=== PATIENT | male | born 1960 | race Caucasian/White ===

== ENCOUNTER 2019-03-28 13:30 | Emergency (ER) | payer MEDICAID, SELFPAY ==
[~2019-03-28] VITALS: Ht 188 cm; Wt 77.9 kg
[2019-03-28] MEDS ORDERED: NS 1,000 ML IV ONE (14:15)
[2019-03-28 15:00] LABS: BASO # 0.1 10^3/uL (0.0-0.2); BASO % 0.6 % (0.0-1.0); EOS # 0.2 10^3/uL (0.0-0.5); EOS % 1.5 % (0.0-3.0); HEMATOCRIT 38.6 % (42.0-52.0); HEMOGLOBIN 12.7 g/dl (13.5-17.5); LYMPH # 1.6 10^3/uL (1.5-5.0); LYMPH % 11.6 % (24.0-44.0); MEAN CORPUSCULAR HEMOGLOBIN 27.5 pg (27.0-33.0); MEAN CORPUSCULAR HGB CONC 32.9 g/dl (32.0-36.5); MEAN CORPUSCULAR VOLUME 83.7 fl (80.0-96.0); MONO # 1.2 10^3/uL (0.0-0.8); MONO % 8.9 % (0.0-5.0); NEUTROPHILS # 10.7 10^3/uL (1.5-8.5); NEUTROPHILS % 76.8 % (36.0-66.0); PLATELET COUNT, AUTOMATED 231 10^3/uL (150-450); RED BLOOD COUNT 4.61 10^6/uL (4.30-6.10); WHITE BLOOD COUNT 13.9 10^3/uL (4.0-10.0)
[2019-03-28] MEDS ORDERED: ISOVUE-370 76% 100ML VIAL (Q9967) As Ordered ONE (15:01)
[2019-03-28 15:29] LABS: ALT/SGPT 24 U/L (12-78); BILIRUBIN,DIRECT < 0.1 MG/DL (0.0-0.2); BILIRUBIN,TOTAL 0.7 MG/DL (0.2-1.0); LIPASE 128 U/L (73-393); TOTAL PROTEIN 6.6 GM/DL (6.4-8.2)
--- NOTE | 2019-03-28 16:13 | REP ---
CT ABDOMEN AND PELVIS WITH IV CONTRAST: TECHNIQUE: Axial contrast enhanced images from the lung bases to the pubic symphysis using 100 mL Isovue 370 intravenous contrast material with multiplanar reformations. In the visualized lung bases there is a spiculated necrotic mass in the posterior aspect of the right lower lobe 3 cm in diameter. The left lower lobe demonstrates a subcentimeter nodule posteriorly at about the same level. There are multiple metastatic lesions throughout the liver. The largest is inferiorly in the right lobe and measures approximately 6.3 cm. The spleen is unremarkable. No adrenal mass is seen. There is also no renal mass. However there is a large mass which involves the body of the pancreas encasing the celiac, hepatic and splenic arteries, and also encasing the superior mesenteric artery. It measures approximately 8 cm at its epicenter with a limb extending anteriorly to the posterior surface of the antrum of the stomach. The mass also extends to the posterior aspect of the fundus of the stomach. Multiple omental and mesenteric nodules are seen in the upper abdomen was well as in the anterior aspect of the lower abdomen. These all are in the range of 1 to 2 cm in diameter. Left paraaortic adenopathy is seen measuring 3 x 1.9 cm. A few other subcentimeter lymph nodes are seen in the periaortic region. There is mild free fluid in the pelvis. Degenerative changes are noted of the spine with several Schmorl's nodes of lumbar vertebral bodies. There is a cluster of likely metastatic adenopathy in the left lower quadrant posterior to the sigmoid colon. IMPRESSION: Large pancreatic mass with extension anteriorly to the posterior margins of the stomach. Multiple satellite nodules seen in the adjacent mesentery and omentum extending inferiorly and anteriorly into the lower abdomen. There is periaortic adenopathy as well. There are multiple innumerable liver metastases. There is encasement of celiac and superior mesenteric arteries in addition to the hepatic and splenic arteries. 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 Mild free fluid in the pelvis. There is a cluster of likely metastatic adenopathy in the left lower quadrant posterior to the sigmoid colon. Electronically Signed by Jesse Breaux MD 03/28/2019 08:05 P
[2019-03-28 16:34] VITALS: BP 165/98
== END 2019-03-28 16:41 | disposition home or self-care (01) ==
LOC: M ED 13:30
DX: C25.9 Malignant neoplasm of pancreas, unspecified (principal); C78.7 Secondary malignant neoplasm of liver and intrahepatic bile duct; C78.00 Secondary malignant neoplasm of unspecified lung; F17.218 Nicotine dependence, cigarettes, with other nicotine-induced disorders
CPT/HCPCS: 36415; 74177; 80047; 80076; 81001; 83605; 83690; 85025; 99284; Q9967

== ENCOUNTER → 2019-04-10 | Outpatient (REF) | payer SELFPAY ==
[2019-04-10 13:37] LABS: BASO # 0.1 10^3/uL (0.0-0.2); BASO % 0.9 % (0.0-1.0); EOS # 0.4 10^3/uL (0.0-0.5); EOS % 2.4 % (0.0-3.0); HEMATOCRIT 38.8 % (42.0-52.0); HEMOGLOBIN 12.4 g/dl (13.5-17.5); LYMPH # 1.5 10^3/uL (1.5-5.0); LYMPH % 10.2 % (24.0-44.0); MEAN CORPUSCULAR HEMOGLOBIN 26.7 pg (27.0-33.0); MEAN CORPUSCULAR VOLUME 83.6 fl (80.0-96.0); MONO # 1.6 10^3/uL (0.0-0.8); MONO % 10.5 % (0.0-5.0); NEUTROPHILS # 11.2 10^3/uL (1.5-8.5); NEUTROPHILS % 75.3 % (36.0-66.0); PLATELET COUNT, AUTOMATED 221 10^3/uL (150-450); RED BLOOD COUNT 4.64 10^6/uL (4.30-6.10); WHITE BLOOD COUNT 14.9 10^3/uL (4.0-10.0)
[2019-04-10 13:47] LABS: ALBUMIN 2.9 GM/DL (3.2-5.2); ALT/SGPT 14 U/L (12-78); BILIRUBIN,TOTAL 0.6 MG/DL (0.2-1.0); BLOOD UREA NITROGEN 14 MG/DL (7-18); CALCIUM LEVEL 9.1 MG/DL (8.5-10.1); CARBON DIOXIDE LEVEL 26 MEQ/L (21-32); CHLORIDE LEVEL 100 MEQ/L (98-107); CREATININE FOR GFR 0.63 MG/DL (0.70-1.30); GLOMERULAR FILTRATION RATE > 60.0 (>56); GLUCOSE, FASTING 114 MG/DL (70-100); POTASSIUM SERUM 4.6 MEQ/L (3.5-5.1); SODIUM LEVEL 134 MEQ/L (136-145); TOTAL PROTEIN 6.6 GM/DL (6.4-8.2)
[2019-04-10 13:48] LABS: INR 1.28; PROTHROMBIN TIME 15.7 SECONDS (11.8-14.0)
[2019-04-10 13:49] LABS: PARTIAL THROMBOPLASTIN TIME 38.6 SECONDS (25.0-38.4)
== END ==
LOC: M LAB REF 13:04
PROVIDERS: ATTEND Internal Medicine Pulmonary Disease
DX: Z01.812 Encounter for preprocedural laboratory examination (principal); R59.0 Localized enlarged lymph nodes; R93.5 Abnormal findings on diagnostic imaging of other abdominal regions, including retroperitoneum

== ENCOUNTER → 2019-05-02 | Outpatient (CLI) | payer MEDICAID ==
[~2019-05-02] MED LIST: HYDR-3713 PO
[2019-05-02 15:18] LABS: INR 1.28; PROTHROMBIN TIME 15.7 SECONDS (11.8-14.0)
[2019-05-02 15:19] LABS: PARTIAL THROMBOPLASTIN TIME 41.7 SECONDS (25.0-38.4)
== END ==
LOC: M LAB 13:13
PROVIDERS: ATTEND Internal Medicine
DX: Z00.01 Encounter for general adult medical examination with abnormal findings (principal)

== ENCOUNTER → 2019-05-08 | Outpatient (CLI) | payer MEDICAID ==
[~2019-05-08] MED LIST changes: +LIDOCAINE 1% MDV 20ML VIAL As Ordered ONE
[2019-05-08 16:05] VITALS: BP 117/65
--- NOTE | 2019-05-09 22:31 | REP ---
Ultrasound-guided liver biopsy This procedure was performed by Pao DOUGLASS, under the direct supervision of Dr. Breaux. The risks and benefits of the procedure were explained to the patient and informed consent was obtained both verbally and written. Directly prior to the start of the procedure, a formal timeout was done in the procedure room. The left lobe of the liver was localized using ultrasound guidance. The skin was prepped and draped in a sterile fashion. 7 ml of 1% lidocaine 10 mg/ml was used as a local anesthetic. Using ultrasound guidance a small skin niya was made and a 19/20 gauge coaxial needle biopsy system was inserted and advanced into the liver. 6 core biopsy samples were obtained and sent to the lab. The patient tolerated the procedure well and there were no immediate complications. After the appropriate monitored convalescence the patient was discharged home from the department. Reviewed by EVONNE Farrell 05/08/2019 05:39 P Electronically Signed by Jesse Breaux MD 05/09/2019 10:22 P
== END ==
LOC: M IRPRO 12:38
PROVIDERS: ATTEND Internal Medicine
DX: C78.7 Secondary malignant neoplasm of liver and intrahepatic bile duct (principal); C25.7 Malignant neoplasm of other parts of pancreas; F17.210 Nicotine dependence, cigarettes, uncomplicated; K21.9 Gastro-esophageal reflux disease without esophagitis

== ENCOUNTER 2019-05-24 18:09 | Inpatient (IN) | payer MEDICAID, OTHER ==
[~2019-05-24] VITALS: Ht 177.8 cm; Wt 73.2 kg
[~2019-05-24 18:09] MED LIST changes: -LIDOCAINE 1% MDV 20ML VIAL As Ordered ONE
[2019-05-24] MEDS ORDERED: OMEP-218 (18:16)
[2019-05-24 19:37] LABS: BASO # 0.1 10^3/uL (0.0-0.2); BASO % 0.4 % (0.0-1.0); EOS # 0.3 10^3/uL (0.0-0.5); EOS % 2.1 % (0.0-3.0); LYMPH # 1.3 10^3/uL (1.5-5.0); LYMPH % 8.9 % (24.0-44.0); MEAN CORPUSCULAR HEMOGLOBIN 25.3 pg (27.0-33.0); MEAN CORPUSCULAR HGB CONC 30.9 g/dl (32.0-36.5); MEAN CORPUSCULAR VOLUME 81.8 fl (80.0-96.0); MONO # 1.6 10^3/uL (0.0-0.8); MONO % 11.3 % (0.0-5.0); NEUTROPHILS # 10.8 10^3/uL (1.5-8.5); NEUTROPHILS % 76.6 % (36.0-66.0); PLATELET COUNT, AUTOMATED 245 10^3/uL (150-450); RED BLOOD COUNT 2.53 10^6/uL (4.30-6.10); WHITE BLOOD COUNT 14.1 10^3/uL (4.0-10.0)
[2019-05-24 19:45] LABS: HEMATOCRIT 20.7 % (42.0-52.0); HEMOGLOBIN 6.4 g/dl (13.5-17.5)
[2019-05-24 19:53] LABS: INR 1.4; PROTHROMBIN TIME 16.9 SECONDS (11.8-14.0)
[2019-05-24 19:54] LABS: PARTIAL THROMBOPLASTIN TIME 47.6 SECONDS (25.0-38.4)
[2019-05-24 20:00] LABS: ALBUMIN 2.4 GM/DL (3.2-5.2); ALT/SGPT 16 U/L (12-78); BILIRUBIN,DIRECT 0.4 MG/DL (0.0-0.2); BILIRUBIN,TOTAL 0.6 MG/DL (0.2-1.0); BLOOD UREA NITROGEN 17 MG/DL (7-18); CALCIUM LEVEL 8.5 MG/DL (8.5-10.1); CARBON DIOXIDE LEVEL 26 MEQ/L (21-32); CHLORIDE LEVEL 102 MEQ/L (98-107); CREATININE FOR GFR 0.65 MG/DL (0.70-1.30); GLOMERULAR FILTRATION RATE > 60.0 (>56); GLUCOSE, FASTING 109 MG/DL (70-100); LIPASE 95 U/L (73-393); POTASSIUM SERUM 4.5 MEQ/L (3.5-5.1); SODIUM LEVEL 137 MEQ/L (136-145); TOTAL PROTEIN 5.8 GM/DL (6.4-8.2)
[2019-05-24] MEDS ORDERED: ISOVUE-370 76% 100ML VIAL (Q9967) As Ordered ONE (20:11)
--- NOTE | 2019-05-24 20:58 | REPVR ---
PROCEDURE INFORMATION: Exam: CT Abdomen And Pelvis With Contrast Exam date and time: 05/24/2019 8:17 PM Age: 58 years old Clinical indication: Abdominal pain; Patient HX: Possible new pancreatic CA? ; Additional info: Abdominal bloating; R/O ascites TECHNIQUE: Imaging protocol: Computed tomography of the abdomen and pelvis with intravenous contrast. Radiation optimization: All CT scans at this facility use at least one of these dose optimization techniques: automated exposure control; mA and/or kV adjustment per patient size (includes targeted exams where dose is matched to clinical indication); or iterative reconstruction. Contrast material: ISOVUE 370; Contrast volume: 100 ml; Contrast route: IV; COMPARISON: CT ABD/PEL W/IV CONTRAST ONLY 03/28/2019 3:05 PM FINDINGS: Lungs: Largest mass in the right lobe measures approximate 7.1 cm. Pleural space: 1.6 cm pleural-based right middle lobe mass. Liver: Multiple masses throughout the liver have increased in size and number. Gallbladder and bile ducts: Normal. No calcified stones. No ductal dilation. Pancreas: Ill-defined heterogeneous lobulated pancreatic mass measures approximately 8.3 cm in its largest point, increased in size from the prior exam. The pancreatic mass is not separable from the duodenum. Spleen: Heterogeneous appearance of the spleen with several new low density areas measuring up to 11 mm. Adrenals: Normal. No mass. Kidneys and ureters: Normal. No hydronephrosis. Stomach and bowel: No obstruction. No mucosal thickening. Appendix: No evidence of appendicitis. Intraperitoneal space: Large volume of ascites. Multiple peritoneal masses measuring up to 2.0 cm, predominately in the anterior omentum. Vasculature: The pancreatic mass encases the celiac artery axis and superior mesenteric arteries which are narrowed but remain patent. 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 Aortoiliac atherosclerotic disease. Lymph nodes: Periportal and retroperitoneal lymphadenopathy, similar to the prior exam. Bladder: Unremarkable as visualized. Reproductive: Unremarkable as visualized. Bones/joints: There are degenerative changes in the spine and pelvis. Soft tissues: Unremarkable. IMPRESSION: 1. Interval increase in size of large pancreatic mass. Worsening hepatic and peritoneal metastatic disease with large volume of ascites. 2. Small low-density foci in the spleen may be small peripheral infarcts or small metastases. 3. Stable right lower lobe nodule. Electronically signed by: Isidro Erickson On 05/24/2019 20:58:10 PM
[2019-05-24] MEDS ORDERED: TUMS1000 PO (21:54)
[2019-05-24] MEDS ORDERED: OMEP-218 PO (21:54)
[2019-05-24] MEDS ORDERED: NORC1TAB7 PO (21:54)
[2019-05-24] MEDS ORDERED: ACET25TA12 PO (21:54)
[2019-05-24] MEDS ORDERED: cefTRIAXone SOD 2 GM in D5W MINI-BAG PLUS 50 ML IV ONE (22:15)
--- NOTE | 2019-05-24 22:46 | HPEPDOC ---
General Date of Admission 05/24/19 Date of Service: May 24, 2019 Chief Complaint The patient is a 58-year-old male admitted with a reason for visit of Abnormal Labs. Source: Patient, Family Exam Limitations: No limitations Timing/Duration: Day(s) Severity: Moderate Associated Symptoms: Nausea, Weakness History of Present Illness Patient's 58 years old male with past medical history of pancreatic cancer with liver metastasis presented hospital with abdominal distention, generalized we akness and nausea. Patient stated that for past few weeks he has been having increased abdominal distention associated with generalized weakness. Of note patient has been recently diagnosed with metastatic pancreatic cancer in March of 2019, liver biopsy showed Moderately differentiated adenocarcinoma, morphologically consistent with pancreatobiliary primary. Patient has never seen oncologist due to insurance issue. In ER patient was found to have profound anemia of 6.4, leukocytosis of 14.1, abdominal CT showed Interval increase in size of large pancreatic mass. Worsening hepatic and peritoneal metastatic disease with large volume of ascites. Small low-density foci in the spleen may be small peripheral infarcts or small metastases. Stable right lower lobe nodule. Home Medications Scheduled Acetaminophen/Diphenhydramine (Acetaminophen Pm Caplet) 1 Each Tablet, 2 TAB PO QHS, (Reported) Omeprazole (Omeprazole) 20 Mg Capsule.dr, 20 MG PO DAILY, (Reported) Scheduled PRN Calcium Carbonate (Tums Ultra) 400 Mg Tab.chew, 2,000 MG PO TID PRN for HEARTBURN/INDIGESTION, (Reported) Hydrocodone/Acetaminophen ([place] 5-325 Tablet) 1 Each Tablet, 1 TAB PO Q8H PRN for PAIN, (Reported) Allergies Coded Allergies: No Known Drug Allergies (Verified Allergy, Unknown, 03/28/19) Past Medical History Medical History Pancreatic cancer stage IV, active smoking Surgical History Left shoulder repair Family History I personally reviewed family history and found not pertinent Social History * Smoker: current smoker Alcohol: sober Drugs: denies A-FIB/CHADSVASC A-FIB History Current/History of A-Fib/PAF?: No Current PO Anticoag Therapy: No Review of Systems Constitutional: Reports: Weakness; Denies: Chills, Fever Eyes: Denies: Pain, Vision change ENT: Denies: Head Aches Skin: Reports: Jaundice; Denies: Rash, Lesions Pulmonary: Denies: Dyspnea, Cough Cardiovascular: Denies: Chest Pain, Palpitations Gastrointestinal: Reports: Nausea, Other Symptoms (abdominal distention); Denies: Vomiting Genitourinary: Denies: Dysuria, Frequency Hematologic: Denies: Bruising, Bleeding Excessively Endocrine: Denies: Polydipsia, Polyphagia Musculoskeletal: Denies: Neck Pain, Back Pain Neurological: Denies: Weakness, Numbness Psych: Reports: Mood Normal Physical Examination General Exam: Positive: Alert, Cooperative Eye Exam: Positive: PERRLA ENT Exam: Positive: Atraumatic Neck Exam: Positive: Supple; Negative: JVD Chest Exam: Positive: Clear to auscultation Heart Exam: Positive: Rate Normal Abdomen Exam: Positive: BS Hypoactive, Hepatospenomegaly, Mass; Negative: Normal bowel sounds Extremity Exam: Negative: Clubbing, Cyanosis Skin Exam: Negative: Nl turgor and temperature Neuro Exam: Positive: Strength at 5/5 X4 ext, Cranial Nerves 3-12 NL Psych Exam: Positive: Mental status NL Vital Signs Vital Signs Date Time Temp Pulse Resp B/P (MAP) Pulse Ox O2 Delivery O2 Flow Rate FiO2 05/24/19 19:27 05/24/19 18:09 98.9 104 18 96 Room Air Laboratory Data Labs 24H Laboratory Tests 2 05/24/19 19:24: Immature Granulocyte % (Auto) 0.7, Neutrophils (%) (Auto) 76.6H, Lymphocytes (%) (Auto) 8.9L, Monocytes (%) (Auto) 11.3H, Eosinophils (%) (Auto) 2.1, Basophils (%) (Auto) 0.4, Neutrophils # (Auto) 10.8H, Lymphocytes # (Auto) 1.3L, Monocytes # (Auto) 1.6H, Eosinophils # (Auto) 0.3, Basophils # (Auto) 0.1, Nucleated Red Blood Cells % (auto) 0.0, Prothrombin Time 16.9H, Prothromb Time International Ratio 1.40, Activated Partial Thromboplast Time 47.6H, Anion Gap 9, Glomerular Filtration Rate > 60.0, Calcium Level 8.5, Total Bilirubin 0.6, Direct Bilirubin 0.4H, Aspartate Amino Transf (AST/SGOT) 26, Alanine Aminotransferase (ALT/SGPT) 16, Alkaline Phosphatase 823H, Total Protein 5.8L, Albumin 2.4L, Albumin/Globulin Ratio 0.71L, Lipase 95 05/24/19 20:36: Ammonia 30 CBC/BMP Laboratory Tests 05/24/19 19:24 Assessment/Plan Patient's 58 years old male with past medical history of pancreatic cancer with liver metastasis presented hospital with abdominal distention, generalized weakness and nausea. Patient stated that for past few weeks he has been having increased abdominal distention associated with generalized weakness. Of note patient has been recently diagnosed with metastatic pancreatic cancer in March of 2019, liver biopsy showed Moderately differentiated adenocarcinoma, morphologically consistent with pancreatobiliary primary. Patient has never seen oncologist due to insurance issue. In ER patient was found to have profound anemia of 6.4, leukocytosis of 14.1, abdominal CT showed Interval increase in size of large pancreatic mass. Worsening hepatic and peritoneal metastatic disease with large volume of ascites Problems (1) Pancreatic cancer metastasized to liver Status: Acute Problem Text: Patient has been diagnosed in March 2019 with metastatic cancer Consider oncologist consult Patient has never seen an oncologist due to insurance issue (2) Ascites Status: Acute Problem Text: Secondary to malignancy Will need diagnostic and therapeutic paracentesis Leukocytes count elevated, I'll start ceftriaxone for prophylaxis of SBP (3) Anemia Status: Acute Problem Text: Patient is normotensive no any signs of acute bleed Most likely secondary to malignancy 2 units of blood transfusion Stool for occult blood Consider GI consult in the morning Plan / VTE VTE Prophylaxis Ordered?: CHARIS Jones DO May 24, 2019 22:46
[2019-05-24] MEDS: FUROSEMIDE 20 MG/2 ML VIAL (J1940) IV SCH (23:55)
[2019-05-25] VITALS (15 sets, daily range): BP systolic 104–130; BP diastolic 72–89
[2019-05-25] MEDS ORDERED: NS 1,000 ML IV SCH (00:16)
[2019-05-25 08:03] LABS: HEMATOCRIT 24.1 % (42.0-52.0); HEMOGLOBIN 7.6 g/dl (13.5-17.5); MEAN CORPUSCULAR HGB CONC 31.5 g/dl (32.0-36.5); MEAN CORPUSCULAR VOLUME 79.3 fl (80.0-96.0); PLATELET COUNT, AUTOMATED 244 10^3/uL (150-450); RED BLOOD COUNT 3.04 10^6/uL (4.30-6.10); WHITE BLOOD COUNT 14.1 10^3/uL (4.0-10.0)
[2019-05-25 08:17] LABS: BLOOD UREA NITROGEN 15 MG/DL (7-18); CALCIUM LEVEL 8.1 MG/DL (8.5-10.1); CARBON DIOXIDE LEVEL 24 MEQ/L (21-32); CHLORIDE LEVEL 103 MEQ/L (98-107); CREATININE FOR GFR 0.64 MG/DL (0.70-1.30); GLOMERULAR FILTRATION RATE > 60.0 (>56); GLUCOSE, FASTING 113 MG/DL (70-100); MAGNESIUM LEVEL 2.2 MG/DL (1.8-2.4); POTASSIUM SERUM 3.8 MEQ/L (3.5-5.1); SODIUM LEVEL 135 MEQ/L (136-145)
[2019-05-25] MEDS: OMEPRAZOLE 20 MG CAP PO SCH (08:58)
[2019-05-25] MEDS: FUROSEMIDE 20 MG/2 ML VIAL (J1940) IV SCH (08:59)
[2019-05-25] MEDS ORDERED: HEPARIN SOD (PORCINE) 5000 UNITS/ML VIAL (J1644 PER 1000UNITS) SC SCH (09:00)
[2019-05-25] MEDS ORDERED: PERCOCET 5MG/325MG TAB PO PRN ×2 (10:45)
[2019-05-25 13:22] LABS: SOURCE, BODY FLUID ALBUMIN ASCITES; SOURCE, BODY FLUID GLUCOSE ASCITES; SOURCE, BODY FLUID TOT PROTEIN ASCITES; TOTAL PROTEIN, BODY FLUID 1.6 G/DL (NOT ESTABLISHED)
[2019-05-25 13:44] LABS: APPEARANCE, BODY FLUID HAZY (CLEAR); ASCITES FL COLOR YELLOW (COLORLESS); SOURCE, BODY FLUID ASCITES
[2019-05-25 14:33] LABS: SPEC. GRAVITY BODY FLUIDS 1.016 (NOT ESTABLISHED)
--- NOTE | 2019-05-25 15:44 | IPNPDOC ---
Text Note Date of Service The patient was seen on 05/25/19. NOTE Subjective: Continues to have Severe abdominal pain and distension. Physical Exam: Vitals: As below General Exam: Positive: Alert, Cooperative Eye Exam: Positive: PERRLA ENT Exam: Positive: Atraumatic Neck Exam: Positive: Supple; Negative: JVD Chest Exam: Positive: Clear to auscultation Heart Exam: Positive: Rate Normal Abdomen Exam: Positive: BS Hypoactive, Hepatospenomegaly, Mass; Negative: Normal bowel sounds Extremity Exam: Negative: Clubbing, Cyanosis Skin Exam: Negative: Nl turgor and temperature Neuro Exam: Positive: Strength at 5/5 X4 ext, Cranial Nerves 3-12 NL Psych Exam: Positive: Mental status NL Labs and Radiology : reviewed. Assessment and plan: Patient's 58 years old male with past medical history of pancreatic cancer with liver metastasis presented hospital with abdominal distention, generalized weakness and nausea. Patient stated that for past few weeks he has been having increased abdominal distention associated with general ized weakness. Of note patient has been recently diagnosed with metastatic pancreatic cancer in March of 2019, liver biopsy showed Moderately differentiated adenocarcinoma, morphologically consistent with pancreatobiliary primary. Patient has never seen oncologist due to insurance issue. In ER patient was found to have profound anemia of 6.4, leukocytosis of 14.1, abdominal CT showed Interval increase in size of large pancreatic mass. Worsening hepatic and peritoneal metastatic disease with large volume of ascites Problems Metastatic Pancreatic cancer metastasized to liver, peritoneum Patient has been diagnosed in March 2019 with metastatic cancer Patient has never seen an oncologist due to insurance issue will consult cancer navigator. consult oncology Ascites Secondary to malignancy Will need diagnostic and therapeutic paracentesis, ordered. Leukocytes count elevated, on ceftriaxone Anemia Most likely secondary to malignancy 2 units of blood transfusion given , will order more. Right Lower lobe nodule. stable VS,Fishbone, I+O VS, Fishbone, I+O Laboratory Tests 05/24/19 19:24 05/25/19 07:40 Vital Signs Date Time Temp Pulse Resp B/P (MAP) Pulse Ox O2 Delivery O2 Flow Rate FiO2 05/25/19 06:00 98.9 96 18 130/78 (95) 97 Room Air I&O- Last 24 Hours up to 6 AM 05/25/19 06:00 Intake Total 1890 ml Output Total 750 ml Balance 1140 ml DIAMOND GARCIA MDb 14, 2020 08:37
--- NOTE | 2019-05-25 16:21 | REP ---
Ultrasound-guided paracentesis The procedure was performed under the direct supervision of Dr. Carreon. The risks and benefits of the procedure were explained to the patient and informed consent was obtained. The largest pocket of fluid was localized in the left flank using ultrasound guidance. The skin was prepped and draped in a sterile fashion. 1% lidocaine was used as a local anesthetic. An 8-Monegasque multi side-hole catheter was inserted using trocar technique. 4900 ml of yellow fluid was withdrawn with a sample sent to the lab for analysis. The patient tolerated the procedure well and there were no immediate complications. After the appropriate amount of monitored convalescence the patient was discharged from the department. Electronically Signed by EVONNE Goodman 05/25/2019 03:15 P Electronically Signed by Lewis Carreon MD 05/25/2019 04:13 P
[2019-05-25 18:13] LABS: HEMATOCRIT 28.1 % (42.0-52.0); HEMOGLOBIN 8.9 g/dl (13.5-17.5)
--- NOTE | 2019-05-25 19:50 | MEDONCENPD ---
Date/Time of Encounter Date of Encounter: May 25, 2019 Encounter Reason for Consultation: Pancreatic Ca History of presenting illness: Dada is a 58 y/o male w/ pancreatic cancer with liver metastasis d'sed 03/2019. liver biopsy showed Moderately differentiated adenocarcinoma, morphologically consistent with pancreatobiliary primary. Patient has never seen oncologist due to insurance issue per HPI. Presented hospital with abdominal distention x past 2-3 weeks, and pain 7/10 at worst, generalized weakness and nausea. In ER patient was found to have profound anemia of 6.4, leukocytosis of 14.1, abdominal CT showed Interval increase in size of large pancreatic mass. W orsening hepatic and peritoneal metastatic disease with large volume of ascites. Small low-density foci in the spleen may be small peripheral infarcts or small metastases. Stable right lower lobe nodule. S/P paracentesis today- abd apin 0/10 per patient, denies any other c/o Review of systems: Constitutional: No fevers, chills, night sweats, or weight loss Cardio-pulmonary: No chest pain, SOB, palpitations, dizziness. No cough. No hemoptysis Gastrointestinal: No nausea, vomiting, constipation or diarrhea. No hematemesis, melena or hematochezia Genito-Urinary: No dysuria, hematuria, incontinence, frequency or urgency Musculoskeletal: No bony, muscle or joint aches or pains STATEMENT REQUEST CLERK: No tingling, focal weakness, numbness. No headaches, dizziness, seizures, speech or visual disturbances. All other systems are negative unless otherwise specified in HPI. Home Medications Scheduled Acetaminophen/Diphenhydramine (Acetaminophen Pm Caplet) 1 Each Tablet, 2 TAB PO QHS, (Reported) Omeprazole (Omeprazole) 20 Mg Capsule.dr, 20 MG PO DAILY, (Reported) Scheduled PRN Calcium Carbonate (Tums Ultra) 400 Mg Tab.chew, 2,000 MG PO TID PRN for H EARTBURN/INDIGESTION, (Reported) Hydrocodone/Acetaminophen ([place] 5-325 Tablet) 1 Each Tablet, 1 TAB PO Q8H PRN for PAIN, (Reported) Allergies Coded Allergies: No Known Drug Allergies (Verified Allergy, Unknown, 03/28/19) Past Medical History Medical History Pancreatic cancer stage IV, active smoking Surgical History Left shoulder repair Family History Unaware per patient Social History Smoker: 1ppd x 20 yrs, then 1/2 ppd x 1 year, since 03/2019 increased to 1ppd Alcohol: 3-4 beers/day x 40 yrs, quit 09/2018 Drugs: Denies Vital Signs: Reviewed in EMR- stable Physical Exam: HEENT: Oral mucosa- pink and moist, no conjunctival pallor, sclera anicteric bilaterally LYMPHATICS: No cervical, supraclavicular, axillary or inguinal LAD LUNGS: Clear to auscultation b/l, resonant to percussion b/l HEART: Regular rhythm, no murmurs, no S3/S4, rubs ABDOMEN: Distended, Soft, non-tender, unable to check HSM due to ascites EXTREMITIES: 1+ b/l symmetric pitting edema. Calves non-tender bilaterally SKIN/NAILS: No nail changes. No petechiae/ecchymosis or other skin changes MUSCULO-SKELETAL: Spine non-tender to palpation. Investigations: Reviewed in EMR Assessment/Plan: 1. Pancreatic ca w/ bx proven liver mets, malignant ascites, peritoneal carcinomatosis - 05/31/19 CT A/P- progression of liver mets in size and number,w/ 8.3 cm pancreatic mass- encases the celiac artery axis and superior mesenteric arteries which are narrowed but remain patent. 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 Large volume of ascites. Multiple peritoneal masses measuring up to 2.0 cm, predominately in the anterior omentum. Stable Periportal and retroperitoneal LAD compared to 03/2019 CT a/p - s/p paracentesis- symptomatically better- cultures and cytology pending, on IV abx to cover for SBP given leukocytosis - d/w patient goals of care- best supportive care vs active tumor directed Rx. gave overview of diagnosis, stage and systemic RX options- patient refused palliative care/hospice, wants active tumor directed Rx - please check CT chest, will arrange outpatient PET - will finalize Rx plan in office upon d/c 2. Microcytic anemia - check iron indices (on pre-Tx specimen if possible, if not needs re-draw)- d/w Dr. Brothers, replenish any low stores or inappropriately normal ferritin - FOBT x 3 and GI consult ordered by IM - s/p 2 units of PRBCs, continue Tx prn per established guidelines if hgb <7 range or if symptomatic < 8 range 3. Leukocytosis - likely 2/2 leukemoid reaction from underlying malignancy, SBP being ruled out- on iv abx for latter - monitor 4. Elevated coags- PT/PTT 2/2 to liver dysfunction from metastatic infiltration - check mixing studies 5. DVT ppx - recommend SCDs and if no evidence of bleeding after GI eval, then can add lovenox in this hypercoag state Follow up: With me within the week, upon d/c All of the above was relayed to the patient who was given an opportunity to ask questions that were answered to satisfaction. The patient voiced an understanding and agreed to proceed. D/w Dr. Brothers Thank you for asking us to see this patient in consultation. It is always a privilege and pleasure to participate in the care of your patients. RONALD GEORGES MD May 25, 2019 19:50
[2019-05-25 21:16] LABS: FERRITIN 237 NG/ML (26-388); IRON (FE) 12 UG/DL (65-175); PERCENT SATURATION 3.9 % (19.7-50.0); TOTAL IRON BINDING CAPACITY 308 UG/DL (250-450)
[2019-05-25] MEDS: cefTRIAXone SOD 1 GM in D5W MINI-BAG PLUS 50 ML IV SCH (21:23)
[2019-05-25 21:48] LABS: INR 1.41
[2019-05-25 21:49] LABS: PARTIAL THROMBOPLASTIN TIME 44.3 SECONDS (25.0-38.4)
[2019-05-26 06:00] VITALS: BP 114/77
[2019-05-26 06:27] LABS: BASO # 0.1 10^3/uL (0.0-0.2); BASO % 0.6 % (0.0-1.0); EOS # 0.2 10^3/uL (0.0-0.5); EOS % 1.6 % (0.0-3.0); HEMATOCRIT 26.9 % (42.0-52.0); HEMOGLOBIN 8.6 g/dl (13.5-17.5); LYMPH # 1.1 10^3/uL (1.5-5.0); LYMPH % 7.9 % (24.0-44.0); MEAN CORPUSCULAR HEMOGLOBIN 25.7 pg (27.0-33.0); MEAN CORPUSCULAR VOLUME 80.3 fl (80.0-96.0); MONO # 1.7 10^3/uL (0.0-0.8); MONO % 11.7 % (0.0-5.0); NEUTROPHILS # 10.9 10^3/uL (1.5-8.5); NEUTROPHILS % 77.6 % (36.0-66.0); PLATELET COUNT, AUTOMATED 225 10^3/uL (150-450); RED BLOOD COUNT 3.35 10^6/uL (4.30-6.10); WHITE BLOOD COUNT 14.1 10^3/uL (4.0-10.0)
[2019-05-26 06:58] LABS: BLOOD UREA NITROGEN 13 MG/DL (7-18); CALCIUM LEVEL 7.7 MG/DL (8.5-10.1); CARBON DIOXIDE LEVEL 23 MEQ/L (21-32); CHLORIDE LEVEL 103 MEQ/L (98-107); CREATININE FOR GFR 0.64 MG/DL (0.70-1.30); GLOMERULAR FILTRATION RATE > 60.0 (>56); GLUCOSE, FASTING 155 MG/DL (70-100); POTASSIUM SERUM 3.3 MEQ/L (3.5-5.1); SODIUM LEVEL 135 MEQ/L (136-145)
[2019-05-26] MEDS ORDERED: ISOVUE-370 76% 100ML VIAL (Q9967) As Ordered ONE (07:56)
[2019-05-26] MEDS: BISACODYL 10 MG SUPP PR SCH (08:54)
[2019-05-26] MEDS: OMEPRAZOLE 20 MG CAP PO SCH (08:55)
[2019-05-26] MEDS: SENOKOT S TAB PO SCH ×2 (08:55→20:09)
--- NOTE | 2019-05-26 09:37 | REP ---
Clinical: Pancreatic carcinoma. Lung nodule. Technique: Axial contrast enhanced images from the thoracic inlet to the upper abdomen with coronal and sagittal re-formations using 75 ml Isovue 370 intravenous contrast material. Comparison: None. Findings: There is acute pulmonary embolus extending from the distal aspect of the right main pulmonary artery into the right lower lobe pulmonary arteries. There is a 9 mm pulmonary nodule in the posterior left lower lobe (image [id number] which has increased from 6 mm. There is suggestion for a 15 mm nodule at the base of the right middle lobe inseparable from the diaphragm (image 79). The previously identified area of consolidation with small cavitary component in the right lower lobe has resolved. Very small scattered subtle densities are noted bilaterally and nonspecific. No pleural effusion. No pneumothorax. Tracheobronchial tree is patent. Prominent mediastinal lymph nodes are identified measuring up to approximately 12 mm short axis diameter. The esophagus is distended with layering debris. Impression: 1. Acute pulmonary embolus extending from the right main pulmonary artery into the right lower lobe branch arteries. No associated pulmonary parenchymal process noted. 2. Previously noted consolidation with cavitary component in the right lower lobe has resolved. 3. Two nodules measuring 9 mm and 15 mm as described above concerning for metastatic disease. Electronically Signed by Ryan Arguello MD 05/26/2019 09:29 A
[2019-05-26] MEDS ORDERED: POTASSIUM CHLORIDE 10 MEQ SR TABLET PO ONE (11:00)
[2019-05-26] MEDS ORDERED: ENOXAPARIN 60 MG/0.6 ML SYR (J1650) SC SCH (11:00)
[2019-05-26] MEDS ORDERED: NICOTINE POLACRILEX 2 MG GUM PO PRN (12:30)
[2019-05-26 12:46] LABS: PARTIAL THROMBOPLASTIN TIME 37.7 SECONDS (25.0-38.4)
[2019-05-26 13:57] LABS: HEMATOCRIT 27.4 % (42.0-52.0); HEMOGLOBIN 8.8 g/dl (13.5-17.5)
[2019-05-26 14:00] VITALS: BP 114/77
[2019-05-26] MEDS ORDERED: HEPARIN DRIP 25,000 UNITS in IV 1 EA IV SCH (14:00)
[2019-05-26] MEDS ORDERED: HEPARIN SOD (PORCINE) 5000 UNITS/ML VIAL (J1644 PER 1000UNITS) IV PRN (14:00)
--- NOTE | 2019-05-26 17:12 | IPNPDOC ---
Text Note Date of Service The patient was seen on 05/26/19. NOTE Subjective: Abdominal pain better. olena very upset as he feels nothing is being done for him. he wants to smoke has smoked in the bathroom in the room. Also he had left the floor without staff knowing about it to go and smoke outside. He wanted to sign out AMA. He was been verbally abusive to the nurses. I went back to talk to him after the CT chest was done and explained about the Embolism and the importance of getting the heparin. He was agitated moving around the room saying " no one can do anything for him he is going to anyway" His parents were with him in the room trying to calm him also. I have instructed the staff to inform security if he leaves the floor again. Physical Exam: Vitals: As below General Exam: Positive: Alert, Cooperative, in no distress. Eye Exam: Positive: PERRLA ENT Exam: Positive: Atraumatic Neck Exam: Positive: Supple; Negative: JVD Chest Exam: Positive: Clear to auscultation Heart Exam: Positive: Rate Normal Abdomen Exam: Positive: BS mild generalized tenderness, hepatomegaly, ascites less. Negative: Normal bowel sounds Extremity Exam: Negative: Clubbing, Cyanosis. There is bilateral edema left greater than left. Skin Exam: Negative: Nl turgor and temperature Neuro Exam: Positive: Strength at 5/5 X4 ext, Cranial Nerves 3-12 NL Psych Exam: Positive: Mental status anxious and agitated. Labs and Radiology : reviewed. Assessment and plan: Patient's 58 years old male with past medical history of pa ncreatic cancer with liver metastasis presented hospital with abdominal distention, generalized weakness and nausea. Patient stated that for past few weeks he has been having increased abdominal distention associated with generalized weakness. Of note patient has been recently diagnosed with metasta tic pancreatic cancer in March of 2019, liver biopsy showed Moderately differentiated adenocarcinoma, morphologically consistent with pancreatobiliary primary. Patient has never seen oncologist due to insurance issue. In ER patient was found to have profound anemia of 6.4, leukocytosis of 14.1, abdominal CT showed Interval increase in size of large pancreatic mass. Worsening hepatic and peritoneal metastatic disease with large volume of ascites Pulmonary embolism due to underlying malignancy. fecal occult blood positive but there is no mark hematochezia or marck. discussed with Dr Lackey from oncology. HH stable at 8.6 to 8.8 range. he was ok with starting heparin with close monitoring for mark GIB. If HH starts dropping will have to stop anticoagulation and then will need IVC filter. discussed possibility of EGD and colonoscopy with him . He absolutely does not want a colonoscopy at this time. Will again discuss it later after he is calmer. Mixing study corrected the PTT. will get bilateral dvt scans of the legs. Metastatic Pancreatic cancer metastasized to liver, peritoneum Patient has been diagnosed in March 2019 with metastatic cancer Seen by oncology. will arrange for PET as outpateint , follow up on dc in the clinic. Ascites Secondary to malignancy 4900 ml fluid drained. on ceftriaxone Leukocytosis probably due to cancer. Anemia Most likely secondary to malignancy +/- GIB FOBT positive. No iron deficiency. 3 units of blood transfusion given Monitor HH Right Lower lobe nodule and left lower lobe nodule stable DVT prophylaxis : on heparin infusion. VS,Fishbone, I+O VS, Fishbone, I+O Laboratory Tests 05/25/19 17:59 05/26/19 06:12 05/26/19 13:46 Vital Signs Date Time Temp Pulse Resp B/P (MAP) Pulse Ox O2 Delivery O2 Flow Rate FiO2 05/26/19 14:00 98.7 89 18 114/77 (89) 97 Room Air I&O- Last 24 Hours up to 6 AM 05/26/19 06:00 Intake Total 1075 ml Output Total 975 ml Balance 100 ml DIAMOND GARCIA MD May 26, 2019 17:12
--- NOTE | 2019-05-26 18:07 | REPVR ---
PROCEDURE INFORMATION: Exam: US Duplex Lower Extremity Veins Exam date and time: 05/26/2019 5:31 PM Age: 58 years old Clinical indication: Swelling (edema) of limb; Lower extremity, bilateral; Additional info: Pe TECHNIQUE: Imaging protocol: Real-time duplex ultrasound of the Lower Extremities with 2-D man scale, color Doppler flow and spectral waveform analysis with image documentation. Complete exam focused on the bilateral lower extremity veins. COMPARISON: No relevant prior studies available. FINDINGS: Right deep veins: Nonocclusive thrombus in the right common femoral, femoral vein. Occlusive thrombus in the profunda femorals and visualized greater saphenous vein. Right superficial veins: Saphenofemoral junction is patent without thrombus. Left deep veins: Nonocclusive thrombus left common femoral vein. Occlusive thrombus in the femoral, popliteal vein. Left superficial veins: See Right Deep Veins Finding. Soft tissues: Unremarkable. Other findings: IMPRESSION: Right: Positive for DVT in the right lower extremity. Nonocclusive thrombus in the right common femoral and femoral vein. Occlusive thrombus in the profunda femoris and visualized greater saphenous vein. Left: Positive for DVT in the left lower extremity. Nonocclusive thrombus in the left common femoral vein. Occlusive thrombus in the femoral and popliteal vein. Electronically signed by: Chino Gilliam On 05/26/2019 18:07:00 PM
[2019-05-26 21:49] LABS: HEMATOCRIT 27.1 % (42.0-52.0); HEMOGLOBIN 8.7 g/dl (13.5-17.5)
[2019-05-26 22:00] VITALS: BP_SYST 111; BP_SYST 150; BP_DIAS 72
[2019-05-26] MEDS: cefTRIAXone SOD 1 GM in D5W MINI-BAG PLUS 50 ML IV SCH (23:23)
[2019-05-27 06:00] VITALS: BP 103/70
[2019-05-27 06:18] LABS: BASO # 0.1 10^3/uL (0.0-0.2); BASO % 0.6 % (0.0-1.0); EOS # 0.3 10^3/uL (0.0-0.5); EOS % 2.6 % (0.0-3.0); HEMOGLOBIN 8.7 g/dl (13.5-17.5); LYMPH # 1.4 10^3/uL (1.5-5.0); MEAN CORPUSCULAR HGB CONC 32.2 g/dl (32.0-36.5); MEAN CORPUSCULAR VOLUME 80.8 fl (80.0-96.0); MONO # 1.6 10^3/uL (0.0-0.8); MONO % 12.2 % (0.0-5.0); NEUTROPHILS # 9.6 10^3/uL (1.5-8.5); NEUTROPHILS % 72.8 % (36.0-66.0); PLATELET COUNT, AUTOMATED 220 10^3/uL (150-450); RED BLOOD COUNT 3.34 10^6/uL (4.30-6.10); WHITE BLOOD COUNT 13.1 10^3/uL (4.0-10.0)
[2019-05-27] MEDS ORDERED: ACETAMINOPHEN TAB 650MG DOSE (2X325MG) PO PRN (06:30)
[2019-05-27 06:47] LABS: BLOOD UREA NITROGEN 15 MG/DL (7-18); CALCIUM LEVEL 8.1 MG/DL (8.5-10.1); CARBON DIOXIDE LEVEL 26 MEQ/L (21-32); CHLORIDE LEVEL 104 MEQ/L (98-107); CREATININE FOR GFR 0.62 MG/DL (0.70-1.30); GLOMERULAR FILTRATION RATE > 60.0 (>56); GLUCOSE, FASTING 116 MG/DL (70-100); SODIUM LEVEL 134 MEQ/L (136-145)
[2019-05-27] MEDS: SENOKOT S TAB PO SCH (07:33)
[2019-05-27] MEDS: BISACODYL 10 MG SUPP PR SCH (07:33)
[2019-05-27] MEDS: OMEPRAZOLE 20 MG CAP PO SCH (08:18)
[2019-05-27] MEDS ORDERED: ENOX120I3 SC (08:22)
[2019-05-27] MEDS ORDERED: CEFD1CAP8 PO (09:29)
[2019-05-27] MEDS ORDERED: SENN-52 PO (09:29)
[2019-05-27] MEDS ORDERED: NORC1TAB7 PO (09:29)
[2019-05-27] MEDS ORDERED: LOVE0.8I SC (10:58)
[2019-05-27] MEDS ORDERED: ENOXAPARIN 100MG/1ML SYRINGE (J1650) SC SCH (12:00)
== END 2019-05-27 13:05 | disposition home or self-care (01) | DRG 281 ==
LOC: M ED 18:09 → M ED INP 22:40 → ENRESERV 23:38 → M MSPAV 05-25 01:17
PROVIDERS: ADMIT Internal Medicine; ATTEND Internal Medicine Nephrology
PROC: 0W9G30Z Drainage of Peritoneal Cavity with Drainage Device, Percutaneous Approach (ICD-10-PCS; 2019-05-25)
PROC: 30233N1 Transfusion of Nonautologous Red Blood Cells into Peripheral Vein, Percutaneous Approach (ICD-10-PCS; principal; 2019-05-25 14:00)
DX: C25.9 Malignant neoplasm of pancreas, unspecified (principal); I26.99 Other pulmonary embolism without acute cor pulmonale; R18.0 Malignant ascites; D50.9 Iron deficiency anemia, unspecified; F17.200 Nicotine dependence, unspecified, uncomplicated; D72.829 Elevated white blood cell count, unspecified; C78.7 Secondary malignant neoplasm of liver and intrahepatic bile duct; C78.6 Secondary malignant neoplasm of retroperitoneum and peritoneum; Z79.899 Other long term (current) drug therapy; R91.1 Solitary pulmonary nodule

== ENCOUNTER → 2019-05-31 | Outpatient (CLI) | payer OTHER ==
[~2019-05-31] MED LIST changes: +ACET25TA12 PO; +ALPR0.25 PO; +CEFD1CAP8 PO; +ENOX120I3 SC; +LOVE0.8I SC; +NORC1TAB7 PO; +OMEP-218; +OMEP-218 PO; +SENN-52 PO; +SODIUM BICARBONATE 8.4% INJ 50MEQ 50 ML VIAL As Ordered ONE; +TUMS1000 PO
[2019-05-31 11:58] VITALS: BP 136/90
--- NOTE | 2019-05-31 19:34 | REP ---
Ultrasound-guided paracentesis The procedure was performed by EVONNE Noonan, under the direct supervision of Dr. Carreon. The risks and benefits of the procedure were explained to the patient and informed consent was obtained both verbally and written. Directly prior to the start of the procedure, a formal timeout was completed in the procedure room. Under ultrasound guidance, the largest pocket of fluid in the right flank was localized and skin was marked. The skin was then prepped and draped in a sterile fashion. 11 ml buffered lidocaine was used as a local anesthetic. Using ultrasound guidance, an 8-Sudanese multi side-hole catheter was inserted using trocar technique. 6,000 mL of dark yellow colored fluid was withdrawn and discarded. The patient tolerated the procedure well and there were no immediate complications. After the appropriate monitored convalescence the patient was discharged from the department. Reviewed by EVONNE Farrell 05/31/2019 12:06 P Electronically Signed by Lewis Carreon MD 05/31/2019 07:25 P
== END ==
LOC: M IRPRO 10:02
PROVIDERS: ATTEND Internal Medicine Hematology & Oncology
DX: R18.8 Other ascites (principal); C25.9 Malignant neoplasm of pancreas, unspecified; C78.7 Secondary malignant neoplasm of liver and intrahepatic bile duct

== ENCOUNTER 2019-06-01 13:21 | Day surgery (SDC) | payer OTHER ==
[~2019-06-01] VITALS: Ht 188 cm; Wt 73.4 kg
[~2019-06-01 13:21] MED LIST changes: +LR 1,000 ML IV ONE; +NS 1,000 ML IV ONE; -SODIUM BICARBONATE 8.4% INJ 50MEQ 50 ML VIAL As Ordered ONE
[2019-06-01] MEDS ORDERED: fentaNYL 100 MCG/2 ML INJECTION (J3010) As Ordered ONE (15:10)
[2019-06-01] MEDS ORDERED: LIDOCAINE 2% INJ 100 MG/5 ML SDV (FOR ANES.) As Ordered ONE (15:10)
[2019-06-01] MEDS ORDERED: propofoL 200 MG/20 ML VIAL As Ordered ONE ×2 (15:10→15:45)
--- NOTE | 2019-06-01 15:21 | ROOR ---
Patient Name: Dada Adan Procedure Date: 06/01/2019 2:57 PM Date of : 1960 Age: 58 Room: [facility] Gender: Male Note Status: Finalized Procedure: Upper GI endoscopy Indications: Iron deficiency anemia Providers: Solis ANG MD Referring MD: CATHY GERBER MD, Candy Lemus MD Requesting Provider: Medicines: Monitored Anesthesia Care Complications: No immediate complications. Procedure: Pre-Anesthesia Assessment: - The heart rate, respiratory rate, oxygen saturations, blood pressure, adequacy of pulmonary ventilation, and response to care were monitored throughout the procedure. The Endoscope was introduced through the mouth, and advanced to the second part of duodenum. The upper GI endoscopy was performed with difficulty due to extrinsic compression. The patient tolerated the procedure well. Findings: Moderately severe esophagitis was found in the lower third of the esophagus. Extrinsic compression on the stomach was found in the gastric antrum. The exam of the stomach was otherwise normal. A few 5 mm mucosal nodules were found in the first portion of the duodenum and in the second portion of the duodenum. Biopsies were taken with a cold forceps for histology. Impression: - Moderately severe esophagitis. - Gastric outlet obstruction/restriction:-Extrinsic compression in the gastric antrum and first portion of duodenum. Causing gastric oulet significant restriction. Area passable with moderate pressure into duodenum. - Mucosal nodules found in the duodenum. Biopsied. Recommendation: - Full liquid diet. - Observe patient's clinical course. Solis Ang MD Solis ANG MD 06/01/2019 3:20:41 PM Electronically signed by Solis ANG MD Number of Addenda: 0 Note Initiated On: 06/01/2019 2:57 PM Estimated Blood Loss: Estimated blood loss: none.
[2019-06-01 15:50] VITALS: BP 106/62
--- NOTE | 2019-06-01 15:52 | ROOR ---
Patient Name: Dada Adan Procedure Date: 06/01/2019 2:58 PM Date of : 1960 Age: 58 Gender: Male Note Status: Finalized Procedure: Colonoscopy Indications: Iron deficiency anemia Providers: Solis ANG MD Referring MD: CATHY GERBER MD, Candy Lemus MD Requesting Provider: Medicines: Monitored Anesthesia Care Complications: No immediate complications. Procedure: Pre-Anesthesia Assessment: - The heart rate, respiratory rate, oxygen saturations, blood pressure, adequacy of pulmonary ventilation, and response to care were monitored throughout the procedure. The Colonoscope was introduced through the anus and advanced to the cecum, identified by appendiceal orifice and ileocecal valve. The colonoscopy was performed without difficulty. The patient tolerated the procedure well. The quality of the bowel preparation was fair. Findings: The perianal and digital rectal examinations were normal. A 15 mm polyp was found in the mid sigmoid colon. The polyp was pedunculated. An endoloop was maneuvered over the polyp stalk and closed at the mucosal attachment prior to removal in order to prevent bleeding. The polyp was removed with a hot snare. Resection and retrieval were complete. Multiple medium-mouthed diverticula were found in the sigmoid colon. The exam was otherwise without abnormality on direct and retroflexion views. Internal hemorrhoids were found during retroflexion. The hemorrhoids were medium-sized. Impression: - Suboptimal prep. Fair after lavage. - One 15 mm polyp in the mid sigmoid colon, removed with a hot snare. Resected and retrieved. - Diverticulosis in the sigmoid colon. - The examination was otherwise normal on direct and retroflexion views. Recommendation: - Resume previous diet. - Return to referring physician as previously scheduled. - Resume Lovenox (enoxaparin) at prior dose today. Solis Ang MD Solis ANG MD 06/01/2019 3:51:19 PM Electronically signed by Solis ANG MD Number of Addenda: 0 Note Initiated On: 06/01/2019 2:58 PM Estimated Blood Loss: Estimated blood loss: none. Estimated blood loss: none.
== END 2019-06-01 16:28 | disposition home or self-care (01) ==
LOC: M SDC 13:21
PROVIDERS: ATTEND Internal Medicine Gastroenterology
DX: D12.5 Benign neoplasm of sigmoid colon (principal); D50.9 Iron deficiency anemia, unspecified; K57.30 Diverticulosis of large intestine without perforation or abscess without bleeding; K20.9 Esophagitis, unspecified; K31.89 Other diseases of stomach and duodenum; K74.60 Unspecified cirrhosis of liver; K21.9 Gastro-esophageal reflux disease without esophagitis; M19.90 Unspecified osteoarthritis, unspecified site; F32.9 Major depressive disorder, single episode, unspecified; F41.9 Anxiety disorder, unspecified; F17.210 Nicotine dependence, cigarettes, uncomplicated; Z86.711 Personal history of pulmonary embolism; Z85.07 Personal history of malignant neoplasm of pancreas; Z79.899 Other long term (current) drug therapy; Z79.02 Long term (current) use of antithrombotics/antiplatelets; Z79.891 Long term (current) use of opiate analgesic
CPT/HCPCS: 43239; 45385; 88305; J3010

== ENCOUNTER 2019-06-03 00:42 | Emergency (ER) | payer OTHER ==
[~2019-06-03] VITALS: Ht 188 cm; Wt 74.5 kg
[~2019-06-03 00:42] MED LIST changes: -LR 1,000 ML IV ONE; -NS 1,000 ML IV ONE
--- NOTE | 2019-06-03 02:17 | REPVR ---
PROCEDURE INFORMATION: Exam: CT Abdomen And Pelvis Without Contrast Exam date and time: 06/03/2019 1:44 AM Age: 58 years old Clinical indication: Condition or disease; Ascites and cancer; Liver; Secondary or metastatic site; Primary cancer: Pancreas; Additional info: Ascites, HX of pancreatic CA, new flank pain TECHNIQUE: Imaging protocol: Computed tomography of the abdomen and pelvis without contrast. Radiation optimization: All CT scans at this facility use at least one of these dose optimization techniques: automated exposure control; mA and/or kV adjustment per patient size (includes targeted exams where dose is matched to clinical indication); or iterative reconstruction. COMPARISON: CT ABD/PEL W/IV CONTRAST ONLY 05/24/2019 8:09 PM FINDINGS: Limited evaluation without enteric or IV contrast. ABDOMEN: Posterior left lung base demonstrates a noncalcified 6 mm nodule, axial image 4 and coronal image 93. This area was not specifically covered on the prior CT. Multiple hepatic masses are again identified the largest of which is in the posterior right lobe, similar in size compared to the CT just 10 days ago. Noncontrast spleen shows no obvious focal deformity. Gallbladder is present and shows no evidence of gallstone. Large pancreatic mass with extensive necrotic lymphadenopathy is present, probably partially encasing the posterior wall stomach without obstructing it. Extensive peritoneal and omental carcinomatosis is present and there is large volume ascites similar to the prior CT. Kidneys show no evidence of obstructive uropathy. Adrenal glands are normal in size. No evidence of bowel obstruction or pneumoperitoneum. PELVIS: Massive pelvic ascites. Bladder is unremarkable. No new destructive bony abnormality. IMPRESSION: Extensive metastatic disease in the liver, peritoneum, omentum and pancreatic bed, with the pancreatic and central mesenteric mass appearing perhaps marginally larger over the short interim and the remaining lesions essentially unchanged in 10 days. Large amount of abdominal and pelvic ascites, similar to the prior CT. No evidence of bowel obstruction or new surgical process and no evidence of biliary obstruction Electronically signed by: Shashank Hoang On 06/03/2019 02:17:15 AM
[2019-06-03 02:20] LABS: BASO # 0.1 10^3/uL (0.0-0.2); BASO % 0.4 % (0.0-1.0); EOS # 0.1 10^3/uL (0.0-0.5); EOS % 0.5 % (0.0-3.0); HEMATOCRIT 31.4 % (42.0-52.0); HEMOGLOBIN 9.9 g/dl (13.5-17.5); LYMPH % 5.9 % (24.0-44.0); MEAN CORPUSCULAR HEMOGLOBIN 24.6 pg (27.0-33.0); MEAN CORPUSCULAR HGB CONC 31.5 g/dl (32.0-36.5); MEAN CORPUSCULAR VOLUME 78.1 fl (80.0-96.0); MONO # 1.8 10^3/uL (0.0-0.8); MONO % 10.7 % (0.0-5.0); NEUTROPHILS # 13.7 10^3/uL (1.5-8.5); PLATELET COUNT, AUTOMATED 300 10^3/uL (150-450); RED BLOOD COUNT 4.02 10^6/uL (4.30-6.10); WHITE BLOOD COUNT 16.7 10^3/uL (4.0-10.0)
[2019-06-03 02:42] LABS: INR 1.23; PROTHROMBIN TIME 15.2 SECONDS (11.8-14.0)
[2019-06-03 02:43] LABS: PARTIAL THROMBOPLASTIN TIME 48.4 SECONDS (25.0-38.4)
[2019-06-03 02:48] LABS: ALBUMIN 2.1 GM/DL (3.2-5.2); ALT/SGPT 32 U/L (12-78); BILIRUBIN,DIRECT 0.6 MG/DL (0.0-0.2); BILIRUBIN,TOTAL 0.8 MG/DL (0.2-1.0); BLOOD UREA NITROGEN 21 MG/DL (7-18); CARBON DIOXIDE LEVEL 24 MEQ/L (21-32); CHLORIDE LEVEL 102 MEQ/L (98-107); CREATININE FOR GFR 0.84 MG/DL (0.70-1.30); GLOMERULAR FILTRATION RATE > 60.0 (>56); GLUCOSE, FASTING 157 MG/DL (70-100); LIPASE 74 U/L (73-393); POTASSIUM SERUM 4.3 MEQ/L (3.5-5.1); SODIUM LEVEL 133 MEQ/L (136-145); TOTAL PROTEIN 5.5 GM/DL (6.4-8.2)
[2019-06-03 05:07] VITALS: BP 126/93
--- NOTE | 2019-06-04 11:04 | ED PDOC ---
Post-Departure Follow-Up dr maria g barber faxed formal report of ct abd/p for fu oJnatan Stratton MD Jun 04, 2019 11:04
[2019-06-04] MEDS ORDERED: PARACENTESIS (13:49)
== END 2019-06-03 05:15 | disposition home or self-care (01) ==
LOC: M ED 00:42
DX: R18.8 Other ascites (principal); C25.9 Malignant neoplasm of pancreas, unspecified; C78.7 Secondary malignant neoplasm of liver and intrahepatic bile duct; F17.218 Nicotine dependence, cigarettes, with other nicotine-induced disorders

== ENCOUNTER 2019-06-04 10:12 | Emergency (ER) | payer OTHER ==
[~2019-06-04] VITALS: Ht 188 cm; Wt 76.6 kg
[2019-06-04 10:13] VITALS: BP 121/81
[2019-06-04 11:51] LABS: BASO # 0.1 10^3/uL (0.0-0.2); BASO % 0.6 % (0.0-1.0); EOS # 0.1 10^3/uL (0.0-0.5); EOS % 0.4 % (0.0-3.0); HEMATOCRIT 32.8 % (42.0-52.0); HEMOGLOBIN 10.4 g/dl (13.5-17.5); LYMPH # 1.1 10^3/uL (1.5-5.0); LYMPH % 7.4 % (24.0-44.0); MEAN CORPUSCULAR HEMOGLOBIN 24.7 pg (27.0-33.0); MEAN CORPUSCULAR HGB CONC 31.7 g/dl (32.0-36.5); MEAN CORPUSCULAR VOLUME 77.9 fl (80.0-96.0); MONO # 1.6 10^3/uL (0.0-0.8); NEUTROPHILS # 11.6 10^3/uL (1.5-8.5); PLATELET COUNT, AUTOMATED 307 10^3/uL (150-450); RED BLOOD COUNT 4.21 10^6/uL (4.30-6.10); WHITE BLOOD COUNT 14.5 10^3/uL (4.0-10.0)
[2019-06-04 12:01] LABS: INR 1.18; PROTHROMBIN TIME 14.7 SECONDS (11.8-14.0)
[2019-06-04 12:02] LABS: PARTIAL THROMBOPLASTIN TIME 41.5 SECONDS (25.0-38.4)
[2019-06-04 12:51] LABS: ALT/SGPT 32 U/L (12-78); AMYLASE 10 U/L (25-115); BILIRUBIN,DIRECT 0.4 MG/DL (0.0-0.2); BILIRUBIN,TOTAL 0.9 MG/DL (0.2-1.0); BLOOD UREA NITROGEN 21 MG/DL (7-18); CALCIUM LEVEL 8.6 MG/DL (8.5-10.1); CARBON DIOXIDE LEVEL 25 MEQ/L (21-32); CHLORIDE LEVEL 98 MEQ/L (98-107); CREATININE FOR GFR 0.82 MG/DL (0.70-1.30); GLOMERULAR FILTRATION RATE > 60.0 (>56); GLUCOSE, FASTING 125 MG/DL (70-100); POTASSIUM SERUM 5.1 MEQ/L (3.5-5.1); SODIUM LEVEL 129 MEQ/L (136-145)
[2019-06-04 12:52] LABS: ALBUMIN 2.2 GM/DL (3.2-5.2); LIPASE 55 U/L (73-393); TOTAL PROTEIN 5.9 GM/DL (6.4-8.2)
[2019-06-04] MEDS ORDERED: PARACENTESIS (13:49)
[2019-06-08] MEDS ORDERED: ONDA8TAB10 PO (12:02)
[2019-06-08] MEDS ORDERED: PROC10TA4 PO (12:04)
== END 2019-06-04 15:07 | disposition home or self-care (01) ==
LOC: M ED 10:12
DX: C25.9 Malignant neoplasm of pancreas, unspecified (principal); R18.0 Malignant ascites; Z79.01 Long term (current) use of anticoagulants; Z79.899 Other long term (current) drug therapy

== ENCOUNTER → 2019-06-05 | Outpatient (CLI) | payer OTHER ==
[~2019-06-05] MED LIST changes: +MIDAZOLAM INJ 2 MG/2 ML VIAL (J2250) As Ordered ONE; +ONDA8TAB10 PO; +PARACENTESIS; +PROC10TA4 PO; +SODIUM BICARBONATE 8.4% INJ 50MEQ 50 ML VIAL As Ordered ONE; +diphenhydrAMINE INJ 50MG/ML VIAL (J1200) As Ordered ONE; +fentaNYL 100 MCG/2 ML INJECTION (J3010) As Ordered ONE
[2019-06-05 16:25] VITALS: BP 110/68
--- NOTE | 2019-06-05 17:52 | REP ---
Ultrasound-guided paracentesis The procedure was performed by EVONNE Noonan, under the direct supervision of Dr. Carreon. The risks and benefits of the procedure were explained to the patient and informed consent was obtained both verbally and written. Directly prior to the start of the procedure, a formal timeout was completed in the procedure room. Under ultrasound guidance, the largest pocket of fluid in the right flank was localized and skin was marked. The skin was then prepped and draped in a sterile fashion. 11 ml of buffered lidocaine was used as a local anesthetic. Using ultrasound guidance, an 8-Lao multi side-hole catheter was inserted using trocar technique. 8,550 mL of solid yellow colored fluid was withdrawn and discarded. The patient tolerated the procedure well and there were no immediate complications. After the appropriate monitored convalescence the patient was discharged from the department. Reviewed by EVONNE Farrell 06/05/2019 04:39 P Electronically Signed by Lewis Carreon MD 06/05/2019 05:43 P
== END ==
LOC: M IRPRO 14:54
PROVIDERS: ATTEND Internal Medicine Hematology & Oncology
DX: R18.8 Other ascites (principal); C25.9 Malignant neoplasm of pancreas, unspecified; C78.7 Secondary malignant neoplasm of liver and intrahepatic bile duct; Z79.01 Long term (current) use of anticoagulants; Z79.899 Other long term (current) drug therapy

== ENCOUNTER → 2019-06-06 | Outpatient (CLI) | payer OTHER ==
[~2019-06-06] MED LIST changes: +LIDOCAINE 1% MDV 20ML VIAL As Ordered ONE; -MIDAZOLAM INJ 2 MG/2 ML VIAL (J2250) As Ordered ONE; +PERCOCET 5MG/325MG TAB As Ordered ONE; -SODIUM BICARBONATE 8.4% INJ 50MEQ 50 ML VIAL As Ordered ONE; +ceFAZolin 2 GM/D5W 50 ML IV BAG (J0690 PER 500MG) As Ordered ONE; -diphenhydrAMINE INJ 50MG/ML VIAL (J1200) As Ordered ONE; -fentaNYL 100 MCG/2 ML INJECTION (J3010) As Ordered ONE
--- NOTE | 2019-06-06 15:26 | IRHP ---
[facility] IR Pre-Procedure H & P General Date of Service: Jun 06, 2019 Procedure: Same Day Surgery Interval History and Physical I have seen the patient and reviewed last H & P performed within 30 days. There is no significant interval change. History of Present Illness Chief Complaint The patient is a 58-year-old male admitted with a reason for visit of Pancreatic Ca. PRE-PROCEDURE DIAGNOSIS: pancreatic ca HEART: normal rate. LUNGS: normal breathing at rest. ASA Classification ASA Classification: II-Mild systemic disease, III-Severe systemic dis. Mallampati Score: II NPO: Yes Problems with prior sedation: No Obstructive Sleep Apnea: No Plan moderate sedation Allergies Coded Allergies: No Known Drug Allergies (Verified Allergy, Unknown, 05/31/19) Home Medications Scheduled Acetaminophen/Diphenhydramine (Acetaminophen Pm Caplet), 2 TAB PO QHS, (Reported) Cefdinir (Cefdinir), 1 CAP PO BID Enoxaparin Sodium (Lovenox), 100 MG SC DAILY Omeprazole (Omeprazole), 20 MG PO DAILY, (Reported) Scheduled PRN Alprazolam (Alprazolam), 0.25 MG PO BIDP PRN for ANXIETY/AGITATION, (Reported) Calcium Carbonate (Tums Ultra), 2,000 MG PO TID PRN for HEARTBURN/INDIGESTION, (Reported) Hydrocodone/Acetaminophen (Benton 5-325 Tablet), 1-2 TAB PO Q8H PRN for PAIN Discontinued Medications Sennosides/Docusate Sodium (Senna Plus Tablet), 1 TAB PO BIDP PRN for CONS TIPATION Discontinued Reason: Pt states not taking Durable Medical Equipment [Paracentesis], (DME) VS, I&O, 24H, Fishbone Vital Signs/I&O Vital Signs Date Time Temp Pulse Resp B/P (MAP) Pulse Ox O2 Delivery O2 Flow Rate FiO2 06/06/19 14:17 98 95 16 96 Room Air MOOSE RIOS MD Jun 06, 2019 15:26
[2019-06-06] MEDS: PERCOCET 5MG/325MG TAB PO ONE (17:21)
--- NOTE | 2019-06-06 18:05 | POST-OPPD ---
Postoperative Procedure Note Date Of Procedure: Jun 06, 2019 Time Of Procedure: 18:04 PREOPERATIVE DIAGNOSIS: pancreatic ca POSTOPERATIVE DIAGNOSIS: same FINDINGS: patent right Ij PROCEDURE: right ij port SURGEON: davie ANESTHESIA: mod sed ESTIMATED BLOOD LOSS: < 5 ml COMPLICATIONS: none POSTOPERATIVE CONDITION: stable MOOSE RIOS MD Jun 06, 2019 18:05
[2019-06-06 18:30] VITALS: BP 108/72
--- NOTE | 2019-06-07 15:34 | REP ---
IR Ultrasound and fluoroscopy-guided port placement. IR Ultrasound of the neck. IR Moderate sedation. Clinical information: Pancreatic cancer . Physician: Dr. Coker. Procedure: The patient was advised of the benefits, risks, and alternatives of the procedure and informed consent was obtained. A time-out was performed with verification of the patient's name, MRN, site of procedure and type of procedure to be performed. The patient was positioned in the supine position on the angiographic table. The site was prepped and draped in the usual sterile fashion. Moderate sedation was performed by the physician including the presence of an independent trained observer who assisted and monitored the patient's level of consciousness and physiologic status. Following the administration of fentanyl and Versed , the physician spent 45 minutes of continuous face to face time with the patient. Ultrasound of the neck reveals a patent and compressible right internal jugular vein. A pigment presser radiograph reveals no gross abnormality . The neck and anterior chest wall were anesthetized with lidocaine. The right internal jugular vein was accessed using a microintroducer needle under ultrasound guidance, via a lateral approach. An 018 wire was advanced into the superior vena cava, the needle was removed and a microsheath was placed. An Amplatz wire was then passed into the inferior vena cava. An incision at the internal jugular vein access site and anterior chest wall were made using a scalpel. An incision was made at the anterior chest wall. A small pocket was created using a combination of blunt and sharp dissection. A tunneling device was then used to pass the catheter from the pocket to the neck puncture site. An 8-Mozambican Angio dynamics Smart power port was then positioned in the pocket. The catheter was then measured and cut. The introducer sheath was exchanged for a peel-away sheath. The catheter was passed through the peel-away sheath into the internal jugular vein and the peel-away sheath was removed. The port tip was positioned at the cavoatrial junction. The port was then accessed with a Vazquez needle. The port flushes and aspirates well. The puncture site in the neck was closed. The chest wall incision was then closed with 2-0 Vicryl and 4-0 Monocryl. Glue and Steri-Strips were applied. A sterile dressing was then applied. The patient tolerated the procedure well and was returned to the PRU in stable condition. Estimated blood loss: <5 ml. Complications: None. Conclusion: 1. Successful placement of an 8-Mozambican Angio dynamics Smart power port via the right internal jugular vein. The port is ready for immediate use. 2. Patient to follow up in IR clinic in 2 weeks. Thank you for this referral. Electronically Signed by Teena Coker MD 06/07/2019 03:32 P
== END ==
LOC: M IRPRO 13:45
PROVIDERS: ATTEND Radiology Diagnostic Radiology
DX: C25.9 Malignant neoplasm of pancreas, unspecified (principal)

== ENCOUNTER → 2019-06-11 | Outpatient (CLI) | payer OTHER ==
[~2019-06-11] MED LIST changes: -LIDOCAINE 1% MDV 20ML VIAL As Ordered ONE; -PERCOCET 5MG/325MG TAB As Ordered ONE; +SODIUM BICARBONATE 8.4% INJ 50MEQ 50 ML VIAL As Ordered ONE; -ceFAZolin 2 GM/D5W 50 ML IV BAG (J0690 PER 500MG) As Ordered ONE
[2019-06-11 14:50] VITALS: BP 108/74
--- NOTE | 2019-06-11 20:13 | REP ---
Ultrasound-guided paracentesis The procedure was performed by EVONNE Noonan, under the direct supervision of Dr. Carreon. The risks and benefits of the procedure were explained to the patient and informed consent was obtained both verbally and written. Directly prior to the start of the procedure, a formal timeout was completed in the procedure room. Under ultrasound guidance, the largest pocket of fluid in the left flank was localized and skin was marked. The skin was then prepped and draped in a sterile fashion. 11 ml of buffered lidocaine was used as a local anesthetic. Using ultrasound guidance, an 8-Korean multi side-hole catheter was inserted using trocar technique. 4,700 mL of milky yellow colored fluid was withdrawn and discarded. The patient tolerated the procedure well and there were no immediate complications. After the appropriate monitored convalescence the patient was discharged from the department. Reviewed by EVONNE Farrell 06/11/2019 04:43 P Electronically Signed by Lewis Carreon MD 06/11/2019 08:03 P
== END ==
LOC: M IRPRO 13:16
PROVIDERS: ATTEND Internal Medicine Hematology & Oncology
DX: R18.8 Other ascites (principal); C25.9 Malignant neoplasm of pancreas, unspecified; C78.7 Secondary malignant neoplasm of liver and intrahepatic bile duct; Z79.01 Long term (current) use of anticoagulants; Z79.899 Other long term (current) drug therapy

== ENCOUNTER → 2019-06-12 | Outpatient (CLI) | payer OTHER ==
[~2019-06-12] MED LIST changes: -SODIUM BICARBONATE 8.4% INJ 50MEQ 50 ML VIAL As Ordered ONE
--- NOTE | 2019-06-12 19:19 | REP ---
PET/CT: History: Staging pancreatic cancer. 8 cm locally extensive adenocarcinoma the pancreas. Known hepatic metastases and adenopathy. Comparisons: Comparison CT study May. Comparison chest CT May 26, 2019. TECHNIQUE: 47 minutes following the intravenous injection of a 8.85 mCi dose of F-18 FDG, three-dimensional PET scintigraphy is acquired from the skull base to the proximal thighs. Triplanar noncontrast CT scanning is acquired through the same anatomic range for attenuation correction, and image registration with scan parameters optimized to minimize radiation exposure to the patient. PET scintigraphy and CT datasets were fused and displayed on a workstation with multiplanar and projection display capability. PET/CT Findings: No abnormal head and neck hypermetabolic uptake is seen. In the chest, the 1 cm nodule in the left lower lobe does not show hypermetabolic uptake. The nodular density on or in the diaphragm at the right base is mildly hypermetabolic. Maximum standard uptake value 3.63. In the abdomen, the known large bulky pancreatic mass shows heterogeneous hypermetabolic uptake ranging up to a maximum SUV value of 7.35. There are multiple hypermetabolic hepatic metastatic lesions with avidity ranging up to 10.93. The largest liver lesion shows central necrosis and photopenia. There is hypermetabolic peripancreatic adenopathy, maximum SUV value up to 7.07. There are peritoneal hypermetabolic tumor implants in the upper abdomen and lower abdomen. Maximum standard uptake value in these ranges from 5.97 to 9.92 and a lesion adjacent to the sigmoid colon. No abnormal skeletal uptake. There is ascites. Impression: Hypermetabolic uptake is seen in a bulky pancreatic mass as well as in multiple hepatic metastases, regional upper abdominal lymph nodes, and multiple peritoneal implants scattered in the upper and lower abdomen. No definite hypermetabolic pulmonary parenchymal uptake. The lesion at the right base may be in or just under the diaphragm. It is mildly hypermetabolic. Electronically Signed by Lewis Carreon MD 06/13/2019 07:25 A
== END ==
LOC: M PLARAD 11:02
PROVIDERS: ATTEND Internal Medicine Hematology & Oncology
DX: C25.9 Malignant neoplasm of pancreas, unspecified (principal)
CPT/HCPCS: 78815; A9552

== ENCOUNTER 2019-06-16 11:29 | Emergency (ER) | payer OTHER ==
[~2019-06-16] VITALS: Ht 188 cm; Wt 68.6 kg
[2019-06-16 12:12] LABS: BASO % 0.2 % (0.0-1.0); HEMATOCRIT 33.6 % (42.0-52.0); LYMPH # 1.1 10^3/uL (1.5-5.0); LYMPH % 6.7 % (24.0-44.0); MEAN CORPUSCULAR HEMOGLOBIN 23.9 pg (27.0-33.0); MEAN CORPUSCULAR HGB CONC 32.7 g/dl (32.0-36.5); MONO # 1.7 10^3/uL (0.0-0.8); MONO % 10.5 % (0.0-5.0); NEUTROPHILS # 13.5 10^3/uL (1.5-8.5); NEUTROPHILS % 81.7 % (36.0-66.0); PLATELET COUNT, AUTOMATED 358 10^3/uL (150-450); WHITE BLOOD COUNT 16.5 10^3/uL (4.0-10.0)
[2019-06-16] MEDS ORDERED: NS 1,000 ML IV ONE ×2 (12:15→14:00)
[2019-06-16 12:25] LABS: INR 1.17; PROTHROMBIN TIME 14.6 SECONDS (11.8-14.0)
[2019-06-16 12:26] LABS: PARTIAL THROMBOPLASTIN TIME 40.9 SECONDS (25.0-38.4)
[2019-06-16 13:02] LABS: ALBUMIN 2.2 GM/DL (3.2-5.2); ALT/SGPT 25 U/L (12-78); BILIRUBIN,DIRECT 0.9 MG/DL (0.0-0.2); BILIRUBIN,TOTAL 1.1 MG/DL (0.2-1.0); BLOOD UREA NITROGEN 41 MG/DL (7-18); CALCIUM LEVEL 9.1 MG/DL (8.5-10.1); CARBON DIOXIDE LEVEL 34 MEQ/L (21-32); CHLORIDE LEVEL 88 MEQ/L (98-107); GLOMERULAR FILTRATION RATE > 60.0 (>56); GLUCOSE, FASTING 145 MG/DL (70-100); SODIUM LEVEL 130 MEQ/L (136-145); TOTAL PROTEIN 6.2 GM/DL (6.4-8.2)
[2019-06-16] MEDS ORDERED: PANTOPRAZOLE SODIUM 40 MG in D5W 50 ML IV SCH (14:00)
[2019-06-16] MEDS ORDERED: PANTOPRAZOLE 40MG INJ (PROTONIX) (C9113) IV ONE (14:00)
[2019-06-16] MEDS ORDERED: SODIUM CHLORIDE 0.9% INJ 10 ML SYR IV PRN (14:00)
[2019-06-16] MEDS ORDERED: HYDR-3713 PO (15:21)
[2019-06-16] MEDS ORDERED: APAP325T4 PO (15:21)
[2019-06-16 15:37] VITALS: BP 100/65
== END 2019-06-16 15:39 | disposition short-term general hospital (02) ==
LOC: M ED 11:29
DX: K92.2 Gastrointestinal hemorrhage, unspecified (principal); C25.9 Malignant neoplasm of pancreas, unspecified; T45.515A Adverse effect of anticoagulants, initial encounter; Z86.711 Personal history of pulmonary embolism; J45.909 Unspecified asthma, uncomplicated; F17.210 Nicotine dependence, cigarettes, uncomplicated; Z79.01 Long term (current) use of anticoagulants; Z79.899 Other long term (current) drug therapy
CPT/HCPCS: 80048; 80076; 82140; 85025; 85610; 85730; 86850; 86900; 86901; 93041; 94760; 96361; 96374; 99285; C9113

== ENCOUNTER 2019-06-29 12:07 | Outpatient (CLI) | payer OTHER ==
[2019-06-29] VITALS (7 sets, daily range): BP systolic 96–114; BP diastolic 67–73
[~2019-06-29] VITALS: Ht 188 cm; Wt 64.5 kg
[~2019-06-29 12:07] MED LIST changes: +APAP325T4 PO; +ATOR40TA75 PO; +PANT40TA3 PO
[2019-06-29] MEDS ORDERED: diphenhydrAMINE 25 MG CAP PO ONE (12:45)
[2019-06-29] MEDS ORDERED: ACETAMINOPHEN TAB 650MG DOSE (2X325MG) PO ONE (12:45)
[2019-06-29] MEDS ORDERED: FUROSEMIDE 20 MG/2 ML VIAL (J1940) IV ONE (15:00)
== END 2019-06-29 17:29 | disposition home or self-care (01) ==
LOC: M INFU 12:07
PROVIDERS: ATTEND Internal Medicine Hematology & Oncology
DX: C25.9 Malignant neoplasm of pancreas, unspecified (principal); C78.7 Secondary malignant neoplasm of liver and intrahepatic bile duct; C78.6 Secondary malignant neoplasm of retroperitoneum and peritoneum
CPT/HCPCS: 36430; J1940; P9016

== ENCOUNTER 2019-07-02 10:35 | Emergency (ER) | payer OTHER ==
[~2019-07-02] VITALS: Ht 188 cm; Wt 67.0 kg
[2019-07-02 11:29] LABS: HEMATOCRIT 29.6 % (42.0-52.0); HEMOGLOBIN 9.4 g/dl (13.5-17.5); MEAN CORPUSCULAR HEMOGLOBIN 25.4 pg (27.0-33.0); MEAN CORPUSCULAR HGB CONC 31.8 g/dl (32.0-36.5); WHITE BLOOD COUNT 11.3 10^3/uL (4.0-10.0)
[2019-07-02] MEDS ORDERED: [UNRECOGNIZED DRUG - CODE] (11:33)
[2019-07-02 11:49] LABS: PLATELET COUNT, AUTOMATED 94 10^3/uL (150-450)
[2019-07-02 12:25] LABS: ALBUMIN 2.5 GM/DL (3.2-5.2); ALT/SGPT 21 U/L (12-78); BILIRUBIN,TOTAL 1.8 MG/DL (0.2-1.0); BLOOD UREA NITROGEN 58 MG/DL (7-18); CALCIUM LEVEL 8.4 MG/DL (8.5-10.1); CARBON DIOXIDE LEVEL 19 MEQ/L (21-32); CHLORIDE LEVEL 98 MEQ/L (98-107); CREATININE FOR GFR 1.19 MG/DL (0.70-1.30); GLOMERULAR FILTRATION RATE > 60.0 (>56); GLUCOSE, FASTING 94 MG/DL (70-100); POTASSIUM SERUM 6.3 MEQ/L (3.5-5.1); SODIUM LEVEL 127 MEQ/L (136-145); TOTAL PROTEIN 5.4 GM/DL (6.4-8.2)
[2019-07-02 13:30] VITALS: BP 106/68
[2019-07-02] MEDS ORDERED: SODI1POW59 PO (16:26)
--- NOTE | 2019-07-03 05:36 | ECGEPIP ---
[facility] - ED Test Date: 2019-07-02 Pat Name: REJI PEREZ Department: Room: - Gender: Male [employer]: : 1960 Requested By: AYSE Rincon Order Number: [id number] Reading MD: Elijah Oneill Measurements Intervals Jackson Rate: 88 P: 48 IA: 176 QRS: 56 QRSD: 94 T: 56 QT: 336 QTc: 408 Interpretive Statements SINUS RHYTHM NSTTW ABNORMALITIES SIMILAR TO 08/06/15 Electronically Signed on 07-03-2019 5:36:25 EDT by Elijah Oneill
[2019-07-04] MEDS ORDERED: SODI1POW59 PO (16:14)
== END 2019-07-02 13:44 | disposition home or self-care (01) ==
LOC: M ED 10:35
DX: C25.9 Malignant neoplasm of pancreas, unspecified (principal); C78.7 Secondary malignant neoplasm of liver and intrahepatic bile duct; C78.6 Secondary malignant neoplasm of retroperitoneum and peritoneum; R18.0 Malignant ascites; K21.9 Gastro-esophageal reflux disease without esophagitis; F33.9 Major depressive disorder, recurrent, unspecified; Z86.711 Personal history of pulmonary embolism; F17.210 Nicotine dependence, cigarettes, uncomplicated; Z79.01 Long term (current) use of anticoagulants; Z79.899 Other long term (current) drug therapy